=== PATIENT | female | born 1980 | race Caucasian/White ===

== ENCOUNTER 2021-03-30 06:22 | Emergency (ER) | payer OTHER, SELFPAY ==
--- NOTE | 2021-03-30 | ECG_ITS ---
Test Reason : CHEST PAIN Blood Pressure : / mmHG Vent. Rate : 065 BPM Atrial Rate : 065 BPM P-R Int : 150 ms QRS Dur : 076 ms QT Int : 436 ms P-R-T Axes : 029 037 037 degrees QTc Int : 453 ms Normal sinus rhythm with sinus arrhythmia Normal ECG No previous ECGs available Referred By: Generic ED Physician Electronically Signed By:LAURA SNIDER MD
[2021-03-30 06:24] VITALS: RESP 16; BMI 26.4
[2021-03-30 06:44] VITALS: BP 120/74; PULSE 69; RESP 15; TEMP 37; O2SAT 98
[2021-03-30 06:47] LABS: MANUAL DIFF FLAG NO
[2021-03-30 06:48] LABS: Basophils Percent Auto 0.3 % (0-2); Eosinophils Absolute Auto 0.2 X10*3/uL (0.0-0.4); Eosinophils Percent Auto 3.2 % (0-4); Hematocrit 34.1 % (37-47); Hemoglobin 11.5 g/dl (12.0-16.0); Lymphocytes Absolute Auto 2.8 X10*3/uL (1.2-4.9); Lymphocytes Percent Auto 40.1 % (20-40); Mean Corpuscular HGB Conc 33.7 g/dl (31.0-35.0); Mean Corpuscular Hemoglobin 29.8 pg (27.0-33.0); Mean Corpuscular Volume 88.3 fL (80-98); Mean Platelet Volume 11.5 fL (9.4-12.3); Monocytes Absolute Auto 0.5 X10*3/uL (0.1-1.2); Monocytes Percent Auto 6.5 % (2-11); Neutrophils Absolute Auto 3.5 X10*3/uL (2.0-8.3); Neutrophils Percent Auto 49.9 % (45-73); Platelet Count 200 X10*3/uL (160-400); Red Blood Count 3.86 X10*6/uL (4.20-5.50); Red Cell Distribution Width 12.5 % (11.0-16.0); White Blood Count 7.1 X10*3/uL (4.8-10.8)
--- NOTE | 2021-03-30 06:55 | ED_ITS ---
HPI - Chest Pain General Chief Complaint: Chest Pain Stated Complaint: Chest pain Time Seen by Provider: 03/30/21 06:49 Source: patient Mode of arrival: ambulatory Limitations: no limitations History of Present Illness HPI narrative: Patient comes emergency room complaining of 2 days of central chest pain radiating towards the left breast. Patient states it is constant, pulsating. Patient denies shortness of breath. Patient states that prior to arrival she tried multiple doses of medications for GERD and had several doses of simethicone. Patient denies any respiratory symptoms, no abdominal pain, no urinary symptoms, no fever chills Related Data Allergies Allergy/AdvReac Type Severity Reaction Status Date / Time No Known Allergies Allergy Verified 03/30/21 06:23 Review of Systems Review of Systems: Constitutional : No Weight loss, No Fever, No Chills, No Night Sweats, No Fatigue, No Malaise ENT/Mouth : No Hearing loss, No Ear Pain, No Nasal Congestion, No Sinus Pain, No Hoarseness, No sore throat, No Rhinorrhea, No Swallowing Difficulty Eyes: No Eye Pain, No Swelling, No Redness, No Foreign Body, No Discharge, No Vision Changes Cardiovascular : Complaining of substernal chest pain radiating towards the left breast, No SOB, No Dyspnea on Exertion, No Orthopnea, No Edema, No Palpitations Respiratory : No Cough, No Sputum, No Wheezing, No Smoke Exposure, No Dyspnea Gastrointestinal : No Nausea, No Vomiting, No Diarrhea, No Constipation, No abdominal Pain, No Hematochezia, No Melena Genitourinary : no irregular bleeding, No Dysuria, No Urinary Frequency, No Hematuria, No Urinary Incontinence, No Urgency, No Flank Pain, No Urinary Flow Changes, No Hesitancy Musculoskeletal : No joint pain, No Myalgias, No Joint Swelling Skin : No Skin Lesions, No rash Neuro : No Weakness, No Numbness, No Paresthesias, No Loss of Consciousness, No Dizziness, No Headache Psych : No Anxiety/Panic, No Depression, No SI/HI/AH/VH, No Social Issues, Heme/Lymph: No Bruising, No Bleeding,No Lymphadenopathy Endocrine : No Polyuria, No Polydipsia, No Temperature Intolerance PMFSH Past Medical History Medical History No pertinent past medical history Social History Social History Alcohol intake: never Patient Tobacco Use Status: Never used Tobacco Use of substances other than those prescribed or required for medical reasons: No Advance Directives: No Advance Directives Information Provided: No Patient : No Physical Exam Vital Signs: Vital Signs: Last Vital Signs Temp 98.6 F 03/30/21 06:44 Pulse 69 03/30/21 06:44 Resp 15 03/30/21 06:44 BP 120/74 03/30/21 06:44 Pulse Ox 98 03/30/21 06:44 Body Mass Index 26.4 Const: Other: Appearance: Alert. Oriented X3. No acute distress. Eyes: Pupils equal, round and reactive to light. ENT: Pharynx normal. Neck: Normal inspection. Neck supple. No lymph nodes noted. No crepitus CVS: Normal heart rate and rhythm. Pulses normal. Normal S1 and S2, reproduc ible chest pain on palpation over the sternum Respiratory: No respiratory distress. Breath sounds normal. No Wheezing. No rales Abdomen: Soft and nontender. No rigidity. No distention. Skin: Skin warm and dry. Normal skin color. Normal skin turgor. Extremities: No lower extremity edema. No Lacerations. No Rash Neuro: Oriented X 3. No motor deficit. No sensory deficit. Moving all extermities. No slurred speech. Course Course Course Narrative: Patient's troponin, EKG, dimer within normal limits. Patient's pain likely musculoskeletal. MDM - Chest Pain Lab Data Result diagrams: 03/30/21 06:42 03/30/21 06:42 Labs: Lab Results 03/30/21 03/30/21 03/30/21 Range/Units 06:42 06:42 06:42 WBC 7.1 (4.8-10.8) X10*3/uL RBC 3.86 L (4.20-5.50) X10*6/uL Hgb 11.5 L (12.0-16.0) g/dl Hct 34.1 L (37-47) % MCV 88.3 (80-98) fL MCH 29.8 (27.0-33.0) pg MCHC 33.7 (31.0-35.0) g/dl RDW 12.5 (11.0-16.0) % Plt Count 200 (160-400) X10*3/uL MPV 11.5 (9.4-12.3) fL Immature Gran % (Auto) 0.0 (0.0-0.4) % Neut % (Auto) 49.9 (45-73) % Lymph % (Auto) 40.1 H (20-40) % [place] % (Auto) 6.5 (2-11) % Eos % (Auto) 3.2 (0-4) % Baso % (Auto) 0.3 (0-2) % Lymph # (Auto) 2.8 (1.2-4.9) X10*3/uL [place] # (Auto) 0.5 (0.1-1.2) X10*3/uL Eos # (Auto) 0.2 (0.0-0.4) X10*3/uL Baso # (Auto) 0.0 (0.0-0.2) X10*3/uL Abs Immat Gran (auto) 0.00 (0.00-0.03) X10*3/uL Absolute Neuts (auto) 3.5 (2.0-8.3) X10*3/uL Absolute Nucleated RBC 0.000 (0.0-0.012) X10*3/uL Nucleated RBC % (auto) 0.0 (0.0-0.2) /100WBC D-Dimer NG/ML Sodium 136 (135-145) mmol/L Potassium 4.1 (3.3-5.1) mmol/L Chloride 105 (96-108) mmol/L Carbon Dioxide 25 (22-29) mmol/L Anion Gap 10 L (12-20) BUN 8 L (9-16) mg/dL Creatinine 0.65 (0.5-1.4) mg/dL Estim Creat Clear Calc 94.3 Estimated GFR > 60 Random Glucose 90 (60-115) mg/dL Calcium 8.6 (8.4-10.2) mg/dL Total Bilirubin 0.4 (0.0-1.0) mg/dL AST 20 (5-31) U/L ALT 12 (0-31) U/L Alkaline Phosphatase 92 (39-117) U/L Troponin I High Sens < 3.5 (<3.5-17.0) ng/L Total Protein 6.6 (6.5-8.0) g/dL Albumin 3.7 (3.5-5.0) g/dL 03/30/21 Range/Units 07:14 WBC (4.8-10.8) X10*3/uL RBC (4.20-5.50) X10*6/uL Hgb (12.0-16.0) g/dl Hct (37-47) % MCV (80-98) fL MCH (27.0-33.0) pg MCHC (31.0-35.0) g/dl RDW (11.0-16.0) % Plt Count (160-400) X10*3/uL MPV (9.4-12.3) fL Immature Gran % (Auto) (0.0-0.4) % Neut % (Auto) (45-73) % Lymph % (Auto) (20-40) % [place] % (Auto) (2-11) % Eos % (Auto) (0-4) % Baso % (Auto) (0-2) % Lymph # (Auto) (1.2-4.9) X10*3/uL [place] # (Auto) (0.1-1.2) X10*3/uL Eos # (Auto) (0.0-0.4) X10*3/uL Baso # (Auto) (0.0-0.2) X10*3/uL Abs Immat Gran (auto) (0.00-0.03) X10*3/uL Absolute Neuts (auto) (2.0-8.3) X10*3/uL Absolute Nucleated RBC (0.0-0.012) X10*3/uL Nucleated RBC % (auto) (0.0-0.2) /100WBC D-Dimer < 200 NG/ML Sodium (135-145) mmol/L Potassium (3.3-5.1) mmol/L Chloride (96-108) mmol/L Carbon Dioxide (22-29) mmol/L Anion Gap (12-20) BUN (9-16) mg/dL Creatinine (0.5-1.4) mg/dL Estim Creat Clear Calc Estimated GFR Random Glucose (60-115) mg/dL Calcium (8.4-10.2) mg/dL Total Bilirubin (0.0-1.0) mg/dL AST (5-31) U/L ALT (0-31) U/L Alkaline Phosphatase (39-117) U/L Troponin I High Sens (<3.5-17.0) ng/L Total Protein (6.5-8.0) g/dL Albumin (3.5-5.0) g/dL ECG Data ECG #1: Attestation: I personally reviewed and interpreted this ECG as follows: (Sinus rhythm, 165, no ST segment depression or elevation, no T-wave inversion, QTC 454) Discharge Plan Discharge Clinical Impression: Atypical chest pain Patient Disposition: Home, Self-Care Instructions: Chest Pain (ED), Chest Wall Pain (ED) Additional Instructions: Please follow-up with your primary care physician tomorrow. If you have any worsening or new symptoms, please return to the emergency room or call 911
[2021-03-30 07:09] LABS: Alanine Aminotransferase 12 U/L (0-31); Albumin Level 3.7 g/dL (3.5-5.0); Alkaline Phosphatase 92 U/L (39-117); Anion Gap 10 (12-20); Aspartate Amino Transferase 20 U/L (5-31); Bilirubin Total 0.4 mg/dL (0.0-1.0); Blood Urea Nitrogen 8 mg/dL (9-16); Calcium 8.6 mg/dL (8.4-10.2); Carbon Dioxide 25 mmol/L (22-29); Chloride 105 mmol/L (96-108); Creatinine Clr Calc Pharmacy 94.3; Estimated Glomerular Filt Rate > 60; Glucose Random 90 mg/dL (60-115); Potassium 4.1 mmol/L (3.3-5.1); Sodium 136 mmol/L (135-145); Total Protein 6.6 g/dL (6.5-8.0)
[2021-03-30 07:10] LABS: Troponin-I High Sensitivity < 3.5 ng/L (<3.5-17.0)
[2021-03-30] MEDS: Aspirin Enteric Coated 325 MG TABLET.DR PO (07:13)
[2021-03-30 07:36] LABS: D Dimer < 200 NG/ML
== END 2021-03-30 08:05 | disposition home or self-care (01) ==
PROVIDERS: Emergency Provider Emergency Medicine
DX: R07.89 Other chest pain (principal)
CPT/HCPCS: 36415; 80053; 84484; 85025; 85379; 93005; 99283; 99284; 99285

== ENCOUNTER 2021-06-20 11:37 | Outpatient (REF) | payer OTHER, SELFPAY ==
[2021-06-20 13:23] LABS: COVID-19 Test Positive (Negative); IDNOW Serial# 55D5AD1C
== END 2021-06-20 11:38 | disposition home or self-care (01) ==
LOC: HO.LAB 11:37
PROVIDERS: Visit Provider Internal Medicine
DX: Z20.822 Contact with and (suspected) exposure to COVID-19 (principal)
CPT/HCPCS: 36415; 87635; C9803

== ENCOUNTER 2022-01-11 11:30 | Outpatient (REF) | payer OTHER, SELFPAY ==
[2022-01-11 14:11] LABS: Hematocrit 36.5 % (37.0-47.0); Hemoglobin 12.4 g/dl (12.0-16.0); Mean Corpuscular Hemoglobin 30.3 pg (27.0-33.0); Mean Corpuscular Volume 89.2 fL (80.0-98.0); Mean Platelet Volume 12.6 fL (9.4-12.3); Platelet Count 180 X10*3/uL (160-400); Red Blood Count 4.09 X10*6/uL (4.20-5.50); Red Cell Distribution Width 12.4 % (11.0-16.0); White Blood Count 7.1 X10*3/uL (4.8-10.8)
[2022-01-11 14:45] LABS: Erythrocyte Sedimentation Rate 9 MM/HR (0-20)
[2022-01-11 15:03] LABS: TSH reflex Free T4 0.76 uIU/mL (0.32-4.0)
[2022-01-13 15:02] LABS: CRP High Sensitivity 0.4 mg/L
== END 2022-01-11 11:31 | disposition home or self-care (01) ==
LOC: HO.WFDLDS 11:30
PROVIDERS: Visit Provider Hospitalist
DX: M79.10 Myalgia, unspecified site (principal); R41.89 Other symptoms and signs involving cognitive functions and awareness; R53.83 Other fatigue
CPT/HCPCS: 36415; 84443; 85027; 85652; 86141

== ENCOUNTER → 2022-01-23 10:34 | Outpatient (BNVA) | payer OTHER, SELFPAY | PROVIDERS: PCP Hospitalist; Visit Provider Internal Medicine Rheumatology | DX: F32.A Depression, unspecified (principal); R53.83 Other fatigue; R52 Pain, unspecified; M79.7 Fibromyalgia | CPT/HCPCS: 99202 ==

== ENCOUNTER → 2022-02-15 07:53 | Outpatient (BNVA) | payer OTHER, SELFPAY | PROVIDERS: PCP Hospitalist; Referring Provider Hospitalist; Visit Provider Physician Assistant | DX: K59.09 Other constipation (principal); K21.9 Gastro-esophageal reflux disease without esophagitis; R11.0 Nausea; R10.9 Unspecified abdominal pain; Z98.890 Other specified postprocedural states | CPT/HCPCS: 99202; 99212 ==

== ENCOUNTER → 2022-02-17 08:48 | Outpatient (BNVA) | payer OTHER, SELFPAY | PROVIDERS: PCP Hospitalist; Referring Provider Hospitalist | DX: Z11.0 Encounter for screening for intestinal infectious diseases (principal) | CPT/HCPCS: 99211 ==

== ENCOUNTER 2022-02-17 16:58 | Outpatient (REF) | payer OTHER, SELFPAY ==
[2022-02-18 11:47] LABS: H Pylori Breath Test Negative (Negative)
== END 2022-02-17 16:59 | disposition home or self-care (01) ==
LOC: HO.LNP 16:58
PROVIDERS: Visit Provider Physician Assistant
DX: A04.8 Other specified bacterial intestinal infections (principal)
CPT/HCPCS: 83013

== ENCOUNTER 2022-06-05 14:40 | Outpatient (REF) | payer OTHER, SELFPAY ==
--- NOTE | ~2022-06-05 | XR_ITS ---
EXAMINATION: XR CHEST CLINICAL INFORMATION: Other preprocedural examination COMPARISON: None TECHNIQUE: 2 views of the chest were obtained. FINDINGS: Lungs are clear. No focal consolidation or mass. Normal pulmonary vascularity. No pleural effusion or pneumothorax. Normal heart size. No acute osseous abnormality. XR/XR chest 2V IMPRESSION: No acute pulmonary disease.
[2022-06-05 16:49] LABS: MANUAL DIFF FLAG NO
[2022-06-05 16:53] LABS: Basophils Absolute Auto 0.1 X10*3/uL (0.0-0.2); Basophils Percent Auto 0.7 % (0-2); Eosinophils Absolute Auto 0.2 X10*3/uL (0.0-0.4); Eosinophils Percent Auto 3.2 % (0-4); Hematocrit 39.7 % (37.0-47.0); Hemoglobin 13.3 g/dl (12.0-16.0); Imm Gran Abs Auto 0.01 X10*3/uL (0.00-0.03); Imm Gran Pct Auto 0.1 % (0.0-0.4); Lymphocytes Absolute Auto 3.2 X10*3/uL (1.2-4.9); Lymphocytes Percent Auto 46.9 % (20-40); Mean Corpuscular HGB Conc 33.5 g/dl (31.0-35.0); Mean Corpuscular Hemoglobin 29.6 pg (27.0-33.0); Mean Corpuscular Volume 88.4 fL (80.0-98.0); Mean Platelet Volume 12.1 fL (9.4-12.3); Monocytes Absolute Auto 0.5 X10*3/uL (0.1-1.2); Monocytes Percent Auto 6.7 % (2-11); Neutrophils Absolute Auto 2.9 x10*3/uL (2.0-8.3); Neutrophils Percent Auto 42.4 % (45-73); Platelet Count 214 X10*3/uL (160-400); Red Blood Count 4.49 X10*6/uL (4.20-5.50); Red Cell Distribution Width 12.6 % (11.0-16.0); White Blood Count 6.8 X10*3/uL (4.8-10.8)
[2022-06-05 16:56] LABS: Appearance Urine Clear; Color Urine Yellow; Glucose Urine UA Negative (Negative); Leukocyte Esterase Urine Negative (Negative); Nitrite Urine Negative (Negative); PH 7.5 (5.0-9.0); Specific Gravity - Urine >= 1.030 (1.005-1.025); Urine Blood Negative (Negative); Urine Ketones Trace mg/dL (Negative); Urine Protein Trace mg/dL (Neg-Trace)
[2022-06-05 17:00] LABS: Prothrombin Time 11.3 SEC (10.0-13.1)
[2022-06-05 17:02] LABS: Partial Thromboplastin Time 37.7 SEC (26.0-36.4)
[2022-06-05 17:55] LABS: Alanine Aminotransferase 11 U/L (0-31); Albumin Level 4.1 g/dL (3.5-5.0); Alkaline Phosphatase 114 U/L (39-117); Anion Gap 10 (12-20); Aspartate Amino Transferase 17 U/L (5-31); Bilirubin Total 0.3 mg/dL (0.0-1.0); Blood Urea Nitrogen 11 mg/dL (9-16); Carbon Dioxide 27 mmol/L (22-29); Chloride 103 mmol/L (96-108); Estimated Glomerular Filt Rate > 60; Glucose Random 92 mg/dL (60-115); HCG Quantitative < 2 mIU/mL; Potassium 4.2 mmol/L (3.3-5.1); Sodium 136 mmol/L (135-145); TSH reflex Free T4 1.04 uIU/mL (0.32-4.0); Total Protein 7.1 g/dL (6.5-8.0)
[2022-06-06 05:16] LABS: Estimated Average Glucose 111 mg/dL; Hemoglobin A1c % 5.5 %
[2022-06-07 05:49] LABS: HBS Num1 > 1000.00 mIU/mL (0-7.99); HBc Num1 0.09 S/CO (0.00-0.79); Hepatitis B Core Antibody Nonreactive (Nonreactive); ~HepC Num1 0.16 S/CO (0.00-0.79); ~Hepatitis B Surface Antibody REACTIVE (Nonreactive); ~Hepatitis C Antibody Nonreactive (Nonreactive)
[2022-06-07 06:16] LABS: HBsAGNum1 0.27 S/CO (0.00-0.99); HIV AB/AG Nonreactive (Nonreactive); HIV Num 1 0.07 S/CO (0.00-0.99); Hepatitis B Surface Antigen Negative (Negative)
== END 2022-06-05 14:41 | disposition home or self-care (01) ==
LOC: HO.HMGCX 14:40
PROVIDERS: Visit Provider Family Medicine
DX: Z01.818 Encounter for other preprocedural examination (principal); Z11.3 Encounter for screening for infections with a predominantly sexual mode of transmission; Z11.4 Encounter for screening for human immunodeficiency virus [HIV]; R73.01 Impaired fasting glucose
CPT/HCPCS: 36415; 71046; 80053; 81003; 83036; 84443; 84702; 85025; 85610; 85730; 86704; 86706; 86803; 87340; 87389

== ENCOUNTER 2022-06-16 10:47 | Outpatient (REF) | payer OTHER, SELFPAY ==
[2022-06-16 14:50] LABS: Influenza A PCR NEGATIVE (Negative); Influenza B PCR NEGATIVE (Negative); Resp Syncy Virus RNA Qual PCR NEGATIVE (Negative); SARS COV2 PCR INHOUSE NEGATIVE (Negative)
== END 2022-06-16 10:48 | disposition home or self-care (01) ==
LOC: HO.WFDLDS 10:47
PROVIDERS: Visit Provider Family Medicine
DX: Z20.822 Contact with and (suspected) exposure to COVID-19 (principal)
CPT/HCPCS: 0241U

== ENCOUNTER 2022-08-28 12:13 | Emergency (ER) | payer OTHER, SELFPAY | END 2022-08-28 14:26 | disposition left against medical advice (07) | LOC: HO.ED 13:55 | PROVIDERS: Emergency Provider Emergency Medicine; PCP Hospitalist | DX: G43.909 Migraine, unspecified, not intractable, without status migrainosus (principal) ==

== ENCOUNTER 2022-09-19 09:57 | Day surgery (SDC) | payer OTHER, SELFPAY ==
[2022-09-19 10:35] VITALS: BMI 28.2
[2022-09-19 10:40] VITALS: BP 126/78; PULSE 80; RESP 16; TEMP 36.6; O2SAT 97
[2022-09-19] MEDS: Lactated Ringers 1,000 ML 50 ML IVCONT (10:52)
[2022-09-19 10:57] LABS: UPreg QC Valid YES; Urine Pregnancy NEGATIVE (NEGATIVE)
--- NOTE | 2022-09-19 11:38 | P.CONAN_ITS ---
HPI - Anesthesia Eval Consult details Narrative: screening constipation [facility] Active Problems Active Problems: All Active Problems (Updated 06/16/22 @ 09:53 by Julien Smyth MD) Encounter for screening for other viral diseases (Acute) Pre-op evaluation (Acute) Abdominal pain (Acute) Nausea (Acute) Acid reflux (Acute) Chronic constipation (Acute) Fibromyalgia (Acute) Pain of multiple sites (Acute) Depression (Acute) H/O rectal sphincterotomy (Acute) Fatigue (Acute) Brain fog (Acute) Myalgia (Acute) Trigeminal neuralgia (Acute) H/O parotidectomy (Acute) Chronic headaches (Acute) Past Medical History Medical History No pertinent past medical history Family History Family History Mother Substance use disorder Mental health disorder Father Mental health disorder Substance use disorder Family history of problems with anesthesia: No Surgical History Surgical History H/O rectal sphincterotomy History of section History of parotidectomy History of Problems with Anesthesia: No Social History Social History Housing: House Alcohol intake: never Patient Tobacco Use Status: Never used Tobacco e-Cigarette/Vaping Use: Never Used Second Hand Smoke Exposure: No Use of substances other than those prescribed or required for medical reasons: No Are you DNR?: No Advance Directives: No Advance Directives Information Provided: Yes Recently lost weight without trying: No Nutrition Risks: No Nutritional Risk service: Yes ([employer]-currently, 22 year) Current occupational status: employed Cognitive needs: No Hearing needs: No Vision needs: No Meds Allergies Allergy/AdvReac Type Severity Reaction Status Date / Time No Known Allergies Allergy Verified 08/28/22 13:26 Active Medications: Current Medications Lactated Ringer's (Lr) 1,000 mls @ 50 mls/hr IVCONT .Q20H TAMAR Last Admin: 09/19/22 10:52 Dose: 50 mls/hr Home Medications Medication Instructions Recorded Confirmed Last Taken Type galcanezumab-gnlm 120 mg/mL mg subcut 02/15/22 Unknown History subcutaneous pen injector (Emgality Pen) lorazepam 1 mg tablet 1 mg PO Q6H PRN 02/15/22 Unknown History ondansetron HCl 8 mg tablet 8 mg PO Q6H PRN nausea 02/15/22 Unknown History rizatriptan 10 mg tablet 0 mg PO 02/15/22 Unknown History Exam Exam Date and Time: September 19, 2022 1138 Height,Weight and Vital Signs: Height 5 ft Weight 65.544 kg Last Vital Signs Temp 97.9 F 09/19/22 10:40 Pulse 80 09/19/22 10:40 Resp 16 09/19/22 10:40 BP 126/78 09/19/22 10:40 Pulse Ox 97 09/19/22 10:40 O2 Del Method Room Air 09/19/22 10:40 Pertinent Lab Results Pertinent Lab Results: Laboratory Tests 09/19/22 10:28 Urine Test NEGATIVE Airway Mallampati Class: II TM Dist: >3cm Heart: rr Lungs: cta Assessment and Plan Assessment Anesthesia Assessment: Anesthesia Plan Discussed and Chart Reviewed Final Anesthetic Review Family History of Problems with Anesthesia: No History of Problems with Anesthesia: No NPO: Yes ASA Class: II Final Preanesthetic Review: No Changes in Pt Med Stat, Meds/Allgs Chart Reviewed, Consent Obtained/Reviewed and Anes Risks/Benef Reviewed Patient Risk: Low Procedure Risk: Low Anesthetic Plan Anesthetic Plan: MAC: Disposition: Standard PACU
--- NOTE | 2022-09-19 12:00 | MHC.SHP ---
Pre-Procedural Eval Section A Date of Service: 09/19/22 Section B Chief Complaint: Functional intestinal disorder, gerd, nausea Relevant Family History (Specify if Yes): No Relevant Social History: None Present Medications: see Short Stay Collaborative assessment Medical History: Significant History (trigeminal neuralgia, depression, migraines ) History of Previous Operations: Relevant previous surgery/procedure and date(s) (H/O rectal sphincterotomy History of section History of parotidectomy) Allergies: Allergies Allergy/AdvReac Type Severity Reaction Status Date / Time No Known Allergies Allergy Verified 08/28/22 13:26 Review of Systems Sugical H&P ROS: Negative: Constitution, Cardiovascular, Respiratory, Neurological, Psychiatric, Hem-Onc, Allergic/Immunologic, Gastrointestinal, Genitourinary, Musculoskeletal, Integumentary, Endocrine and Eyes/Ears/Nose/Throat Exam Surgical H&P Exam: Normal: HEENT, Normal: Heart, Normal: Lungs, Normal: Extremities, Normal: Abdomen, Normal: Skin and Normal: Neurological Plan Diagnosis/Plan: Unchanged I have reviewed the history and physical and performed a pertinent physical examination on my patient. No changes have occurred unless specified. Time Spent With Patient Time: Total time managing care of this patient today ____ minutes.
--- NOTE | 2022-09-19 12:02 | W.PM.OPN ---
Operative Note Operative Note Date of Service: 09/19/22 Narrative: Operative Information Procedure Description: EGD, Colonoscopy Indication: nausea, gerd, rectal pain Anesthesia: MAC FLEXIBLE TRANSORAL UPPER GASTROINTESTINAL ENDOSCOPY AND COLONOSCOPY PROCEDURE NOTE UPPER ENDOSCOPY Consent: Indications for the procedure and potential complications of bleeding, perforation, reaction to medications and missed diagnosis were discussed with the patient and informed consent was obtained. Instrument: Olympus GIF H 190 J mid size upper endoscope Monitoring: Vital signs and clinical assessment, continuous EKG monitoring, Pulse oximetry, Carbon Dioxide monitoring and blood pressure monitoring were done throughout the procedure. Procedure: The patient was placed in the left lateral decubitis position and pre-procedure medications were administered and a bite block was placed. The endoscope was inserted into the mouth and advanced under direct vision to the third part of duodenum. A careful inspection was made as the upper endoscope was withdrawn including a retroflexed examination of the proximal stomach; Findings and interventions are described below. Findings: Larynx:normal Esophagus: GE junction at 36 cm, diaphragm hiatus at 36 cm, mild bogginess and erythema at GEJ, bx taken as well as from distal and proximal esophagus Stomach: Normal mucosa. Biopsies were obtained. Grade 2 flap valve on retroflexed examination of the cardia. Duodenum: Normal bulb and descending duodenum, bx taken Intervention: Biopsies as noted above COLONOSCOPY Instrument: Olympus variable stiffness pediatric scope 190L Colonoscopy Monitoring: Vital signs and clinical assessment, continuous EKG monitoring, Pulse oximetry, Carbon Dioxide monitoring and blood pressure monitoring were done throughout the procedure. Colon withdrawal time was 18 minutes. Procedure: The patient was placed in the left lateral decubitis position and pre-procedure medications were administered. After a digital rectal examination of the ano-rectum, the video colonoscope was inserted into the rectum and advanced through the colon to the cecum/TI. The colonoscope was slowly withdrawn in a retrograde panoramic fashion and the colon mucosa was carefully examined including a retroflexed view of the rectum. Findings and interventions are described below. Procedure Difficulty: moderate due to redundant colon Findings: Terminal Ileum-normal, bx taken, superficial ulceration of the ileocecal valve, bx taken Cecum: prominent follicles, bx taken Ascending Colon: normal, bx taken Transverse Colon -normal Descending Colon:normal, bx taken Sigmoid Colon: normal, bx taken Rectum: Retroflexion with small internal hemorrhoids, grade I, random bx taken Anorectum - normal Colon preparation: [place] Bowel Preparation Scale Right colon; 2 Transverse colon: 1-2 Left colon; 1-2 (0 = Unprepared colon segment with mucosa not seen due to solid stool that cannot be cleared. 1 = Portion of mucosa of the colon segment seen, but other areas of the colon segment not well seen due to staining, residual stool and/or opaque liquid. 2 = Minor amount of residual staining, small fragments of stool and/or opaque liquid, but mucosa of colon segment seen well. 3 = Entire mucosa of colon segment seen well with no residual staining, small fragments of stool or opaque liquid) Impression and Post Procedure Diagnosis: Endoscopy Findings: mild esophagitis Colonoscopy Findings: ileocecal valve ulceration internal hemorrhoids Plan: Await Pathology results Repeat Colonoscopy in 3-4 years due to fair prep in some areas or earlier if clinically indicated High fiber diet leaflet avoid straining at stool, epsom salts and sitz bath, anusol supps or cream depending on bx might consider CTe to r/o crohns also her rectal pain clinically appears to be consistent with proctalgia fugax, leaflet given, may benefit from trial of nortriptiline Above findings were reviewed with the patient and relevant handouts were provided if indicated.
--- NOTE | 2022-09-19 12:54 | P.CONAN_ITS ---
[facility] Active Problems Active Problems: All Active Problems (Updated 06/16/22 @ 09:53 by Julien Smyth MD) Encounter for screening for other viral diseases (Acute) Pre-op evaluation (Acute) Abdominal pain (Acute) Nausea (Acute) Acid reflux (Acute) Chronic constipation (Acute) Fibromyalgia (Acute) Pain of multiple sites (Acute) Depression (Acute) H/O rectal sphincterotomy (Acute) Fatigue (Acute) Brain fog (Acute) Myalgia (Acute) Trigeminal neuralgia (Acute) H/O parotidectomy (Acute) Chronic headaches (Acute) Past Medical History Medical History No pertinent past medical history Family History Family History Mother Substance use disorder Mental health disorder Father Mental health disorder Substance use disorder Family history of problems with anesthesia: No Surgical History Surgical History H/O rectal sphincterotomy History of section History of parotidectomy History of Problems with Anesthesia: No Social History Social History Housing: House Alcohol intake: never Patient Tobacco Use Status: Never used Tobacco e-Cigarette/Vaping Use: Never Used Second Hand Smoke Exposure: No Use of substances other than those prescribed or required for medical reasons: No Are you DNR?: No Advance Directives: No Advance Directives Information Provided: Yes Recently lost weight without trying: No Nutrition Risks: No Nutritional Risk service: Yes ([employer]-currently, 22 year) Current occupational status: employed Cognitive needs: No Hearing needs: No Vision needs: No Meds Allergies Allergy/AdvReac Type Severity Reaction Status Date / Time No Known Allergies Allergy Verified 08/28/22 13:26 Active Medications: Current Medications Lactated Ringer's (Lr) 1,000 mls @ 50 mls/hr IVCONT .Q20H TAMAR Last Admin: 09/19/22 10:52 Dose: 50 mls/hr Home Medications Medication Instructions Recorded Confirmed Last Taken Type galcanezumab-gnlm 120 mg/mL mg subcut 02/15/22 Unknown History subcutaneous pen injector (Emgality Pen) lorazepam 1 mg tablet 1 mg PO Q6H PRN 02/15/22 Unknown History ondansetron HCl 8 mg tablet 8 mg PO Q6H PRN nausea 02/15/22 Unknown History rizatriptan 10 mg tablet 0 mg PO 02/15/22 Unknown History Exam Exam Date and Time: September 19, 2022 1254 Height,Weight and Vital Signs: Height 5 ft Weight 65.544 kg Last Vital Signs Temp 97.9 F 09/19/22 10:40 Pulse 80 09/19/22 10:40 Resp 16 09/19/22 10:40 BP 126/78 09/19/22 10:40 Pulse Ox 97 09/19/22 10:40 O2 Del Method Room Air 09/19/22 10:40 Pertinent Lab Results Pertinent Lab Results: Laboratory Tests 09/19/22 10:28 Urine Test NEGATIVE Airway Mallampati Class: II TM Dist: >3cm Neck ROM: Full Loose/Missing/Broken Teeth: No Heart: rr Lungs: cta Assessment and Plan Assessment Anesthesia Assessment: Anesthesia Plan Discussed and Chart Reviewed Final Anesthetic Review Family History of Problems with Anesthesia: No History of Problems with Anesthesia: No NPO: Yes Final Preanesthetic Review: No Changes in Pt Med Stat, Meds/Allgs Chart Reviewed, Consent Obtained/Reviewed and Anes Risks/Benef Reviewed Patient Risk: Low Procedure Risk: Low Anesthetic Plan Anesthetic Plan: MAC: Disposition: Standard PACU
[2022-09-19 13:20] VITALS: BP 117/74; PULSE 96; RESP 16; TEMP 36.5; O2SAT 100
[2022-09-19 13:35] VITALS: BP 117/72; PULSE 87; RESP 18; TEMP 36.9; O2SAT 100
[2022-09-19 13:50] VITALS: BP 126/64; PULSE 81; RESP 18; TEMP 36.9; O2SAT 100
== END 2022-09-19 14:47 | disposition home or self-care (01) ==
PROVIDERS: Anesthesiology; PCP Hospitalist; Visit Provider Internal Medicine Gastroenterology
PROC: (CPT 45380; principal; 2022-09-19 11:50)
DX: K62.5 Hemorrhage of anus and rectum (principal); K64.0 First degree hemorrhoids; K63.3 Ulcer of intestine; Q43.8 Other specified congenital malformations of intestine; K59.09 Other constipation; K59.9 Functional intestinal disorder, unspecified; R10.9 Unspecified abdominal pain; R11.0 Nausea; K21.9 Gastro-esophageal reflux disease without esophagitis; K20.80 Other esophagitis without bleeding; K44.9 Diaphragmatic hernia without obstruction or gangrene; G50.0 Trigeminal neuralgia; F32.A Depression, unspecified; G43.909 Migraine, unspecified, not intractable, without status migrainosus; Z79.899 Other long term (current) drug therapy; Z98.890 Other specified postprocedural states
CPT/HCPCS: 45380; 43239; 81025; 88305; 88342; J2405

== ENCOUNTER → 2022-09-25 12:11 | Outpatient (BNVA) | payer OTHER, SELFPAY | PROVIDERS: PCP Hospitalist; Visit Provider Physician Assistant | DX: K59.4 Anal spasm (principal); K64.8 Other hemorrhoids; K21.9 Gastro-esophageal reflux disease without esophagitis; Z79.899 Other long term (current) drug therapy | CPT/HCPCS: 99212 ==